=== PATIENT | male | born 1960 ===

== ENCOUNTER 2021-07-26 10:07 | Outpatient (CLI) | payer OTHER | END 2021-07-26 10:12 | disposition home or self-care (01) | LOC: RX STUDY 10:07 | PROVIDERS: ATTEND Internal Medicine Gastroenterology | DX: K44.9 Diaphragmatic hernia without obstruction or gangrene (principal); R13.14 Dysphagia, pharyngoesophageal phase; Z12.11 Encounter for screening for malignant neoplasm of colon ==